=== PATIENT | male | born 1955 | race Caucasian/White ===

== ENCOUNTER 2017-04-24 06:20 | Emergency (ER) | payer OTHER ==
[~2017-04-24] VITALS: Ht 190.5 cm; Wt 91.0 kg
[2017-04-24 06:23] VITALS: BP 154/92
[2017-04-24] MEDS ORDERED: KETOROLAC 30MG/ML VIAL IV STA (07:08)
[2017-04-24] MEDS ORDERED: ACETAMINOPHEN 325MG TABLET PO STA (07:08)
[2017-04-24] MEDS ORDERED: SODIUM CHLORIDE 0.9% 1000ML BAG (SEPSIS BOLUS) IV ONE (07:15)
== END 2017-04-24 09:13 | disposition left against medical advice (07) ==
LOC: ER 06:20
DX: R50.9 Fever, unspecified (principal); R05 Cough; J44.9 Chronic obstructive pulmonary disease, unspecified; E11.9 Type 2 diabetes mellitus without complications; I10 Essential (primary) hypertension; F43.10 Post-traumatic stress disorder, unspecified; Z86.19 Personal history of other infectious and parasitic diseases
CPT/HCPCS: 99283; J7030

== ENCOUNTER 2018-09-02 04:55 | Inpatient (IN) | payer OTHER ==
[2018-09-02] VITALS (7 sets, daily range): BP systolic 118–146; BP diastolic 78–98
[~2018-09-02] VITALS: Ht 200.7 cm; Wt 87.1 kg
[2018-09-02] MEDS ORDERED: ALBUTEROL (0.083%) 2.5MG/3ML NEB HHN STA (04:59)
[2018-09-02] MEDS ORDERED: METHYLPREDNISOLONE SOD SUCC 125 MG/2 ML VIAL IV STA (04:59)
[2018-09-02] MEDS ORDERED: IPRATROPIUM BROMIDE (0.02%) 0.5MG/2.5ML NEB HHN STA (04:59)
[2018-09-02 05:36] LABS: BASOPHILS % 1.3 % (0.0-2.0); EOSINOPHILS % 1.7 % (0.0-5.0); HEMATOCRIT. 42.2 % (42.0-52.0); HEMOGLOBIN. 14.8 g/dL (14.0-18.0); LYMPHOCYTES % 16.8 % (20.0-50.0); MEAN CORPUSCULAR HEMOGLOBIN 31.6 pg (28.0-32.0); MEAN CORPUSCULAR VOLUME 90.3 fL (80.0-94.0); MEAN PLATELET VOLUME 8.6 fl (7.4-10.4); NEUTROPHILS % 71.2 % (40.0-76.0); PLATELET 285 x1000/uL (130-400); RED BLOOD CELL COUNT 4.67 mill/uL (4.7-6.1); RED CELL DISTRIBUTION WIDTH 13.7 % (11.6-14.6)
[2018-09-02 05:38] LABS: CHLORIDE 100 mEq/L (98-107)
[2018-09-02] MEDS ORDERED: GLIP5TAB12 MT (10:24)
[2018-09-02] MEDS ORDERED: ASPI-1158 MT (10:24)
[2018-09-02] MEDS ORDERED: IPRATROPIUM/ALBUTEROL 0.5-3(2.5)MG/3ML NEB INH PRN (10:30)
[2018-09-02] MEDS ORDERED: ONDANSETRON HCL 4MG/2ML INJ IV PRN (10:30)
[2018-09-02] MEDS ORDERED: DOCUSATE SODIUM 100MG CAPSULE PO PRN (10:30)
[2018-09-02] MEDS ORDERED: ACETAMINOPHEN 325MG TABLET PO PRN (10:30)
[2018-09-02] MEDS ORDERED: MAGNESIUM/ALUMINUM HYDROXIDE/SIMETHICONE 30ML UDC PO PRN (10:30)
[2018-09-02] MEDS ORDERED: CLONIDINE 0.1MG TABLET PO PRN (10:30)
[2018-09-02] MEDS ORDERED: CHOL20004 MT (10:53)
[2018-09-02] MEDS ORDERED: METHYLPREDNISOLONE SOD SUCC 125 MG/2 ML VIAL IV SCH (11:00)
[2018-09-02] MEDS: ENOXAPARIN 40MG/0.4ML SYR SUBCUT SCH (11:30)
[2018-09-02] MEDS ORDERED: DEXTROSE 50% WATER 50ML SYRINGE IV PRN (12:00)
[2018-09-02] MEDS: BLOOD SUGAR DIAGNOSTIC STRIP TEST SCH ×3 (12:20→20:55)
[2018-09-02] MEDS ORDERED: LEVOFLOXACIN 500MG PREMIX 100 ML IV SCH (12:30)
[2018-09-02 12:48] LABS: BG BASE EXCESS -2.1 mmol/L (-2.0-2.0); BG CARBOXYHEMOGLOBIN 0.5 % (0.5-1.5); BG DEOXYHEMOGLOBIN 2.6 % (0.0-5.0); BG FRACTION INSPIRED OXYGEN 28; BG HCO3 ACT 21.8 mmol/L (22.0-26.0); BG METHEMOGLOBIN 0.1 % (0.0-1.5); BG OXYGEN SATURATION 97.4 % (92.0-98.5); BG OXYHEMOGLOBIN 96.8 % (94.0-97.0); BG PCO2 35.3 mmHg (35.0-45.0); BG PH 7.409 (7.350-7.450); BG PO2 98.3 mmHg (75.0-100.0); BG SAMPLE SITE RIGHT BRACHIAL; BG TOTAL HEMOGLOBIN 15.3 g/dL (12.0-18.0); BG VENT MODE NASAL CANNULA
[2018-09-02] MEDS: IPRATROPIUM/ALBUTEROL 0.5-3(2.5)MG/3ML NEB INH SCH ×2 (13:05→20:06)
[2018-09-02] MEDS: INSULIN LISPRO 100 UNITS/ML SUBCUT SCH ×3 (13:27→21:00)
[2018-09-02] MEDS: NICOTINE 21MG PATCH TD SCH (14:55)
[2018-09-02] MEDS: MONTELUKAST SODIUM 10MG TABLET PO SCH (16:18)
[2018-09-02] MEDS: CEFTRIAXONE 1 G PREMIX 50 ML IV SCH (16:18)
[2018-09-02] MEDS: AZITHROMYCIN 500 MG in DEXT 5% WATER 250 ML IV SCH (16:18)
[2018-09-02 16:21] LABS: CLARITY URINE CLEAR (CLEAR); COLOR URINE YELLOW (YELLOW); KETONES URINE 1+ (NEGATIVE); LEUKOCYTE ESTERASE URINE NEGATIVE (NEGATIVE); NITRITE URINE NEGATIVE (NEGATIVE); OCCULT BLOOD URINE NEGATIVE (NEGATIVE); PROTEIN URINE NEGATIVE (NEGATIVE); SPECIFIC GRAVITY URINE 1.037 (1.005-1.030)
[2018-09-02 16:42] LABS: *AMPHETAMINES SCREEN URINE PRESUMTIVE POSITIVE (NEGATIVE); *BARBITURATES SCREEN URINE NEGATIVE (NEGATIVE); *BENZODIAZEPINES SCREEN URINE NEGATIVE (NEGATIVE); *COCAINE SCREEN URINE NEGATIVE (NEGATIVE); METHADONE URINE SCREEN NEGATIVE (NEGATIVE); OPIATES URINE SCREEN NEGATIVE (NEGATIVE)
[2018-09-02 16:43] LABS: CANNABINOID URINE SCREEN NEGATIVE (NEGATIVE); PHENCYCLIDINE URINE SCREEN NEGATIVE (NEGATIVE)
[2018-09-02] MEDS: GLIPIZIDE 5MG TABLET PO SCH (16:45)
[2018-09-02] MEDS: GUAIFENESIN 200MG/10ML SUGAR FREE UDC PO PRN (16:45)
[2018-09-02] MEDS: LORATADINE 10MG TABLET PO SCH (20:49)
[2018-09-02] MEDS: METHYLPREDNISOLONE SOD SUCC 40 MG/ML VIAL IV SCH (20:49)
[2018-09-02] MEDS: FLUTICASONE PROPIONATE 50MCG/SPRAY BOTTLE BOTHNSTRLS SCH (20:50)
[2018-09-03] VITALS (12 sets, daily range): BP systolic 117–153; BP diastolic 67–91
[2018-09-03] MEDS: MORPHINE SULFATE 2 MG/ML CPJ (NOT FOR IM USE) IV PRN (01:36)
[2018-09-03] MEDS: IPRATROPIUM/ALBUTEROL 0.5-3(2.5)MG/3ML NEB INH SCH ×4 (01:50→20:16)
[2018-09-03] MEDS: METHYLPREDNISOLONE SOD SUCC 40 MG/ML VIAL IV SCH ×3 (03:12→20:33)
[2018-09-03 07:34] LABS: HEMATOCRIT. 42.1 % (42.0-52.0); HEMOGLOBIN. 14.4 g/dL (14.0-18.0); MEAN CORPUSCULAR HEMOGLOBIN 30.9 pg (28.0-32.0); MEAN CORPUSCULAR VOLUME 90.3 fL (80.0-94.0); MEAN PLATELET VOLUME 8.7 fl (7.4-10.4); PLATELET 285 x1000/uL (130-400); RED BLOOD CELL COUNT 4.67 mill/uL (4.7-6.1); RED CELL DISTRIBUTION WIDTH 13.5 % (11.6-14.6)
[2018-09-03 07:49] LABS: CHLORIDE 99 mEq/L (98-107)
[2018-09-03] MEDS: BLOOD SUGAR DIAGNOSTIC STRIP TEST SCH ×4 (08:10→20:45)
[2018-09-03] MEDS: GLIPIZIDE 5MG TABLET PO SCH ×2 (08:13→17:23)
[2018-09-03] MEDS: ENOXAPARIN 40MG/0.4ML SYR SUBCUT SCH (08:32)
[2018-09-03] MEDS: NICOTINE 21MG PATCH TD SCH (08:32)
[2018-09-03] MEDS: FLUTICASONE PROPIONATE 50MCG/SPRAY BOTTLE BOTHNSTRLS SCH ×2 (08:32→20:32)
[2018-09-03] MEDS: INSULIN LISPRO 100 UNITS/ML SUBCUT SCH ×6 (08:39→20:44)
[2018-09-03] MEDS: AMLODIPINE 10MG TABLET PO SCH (08:40)
[2018-09-03] MEDS ORDERED: BENZONATATE 100MG CAPSULE PO PRN (11:45)
[2018-09-03] MEDS ORDERED: TERBUTALINE SULFATE 1MG/ML VIAL SUBCUT SCH (12:30)
[2018-09-03] MEDS ORDERED: PHENOL/SODIUM PHENOLATE 1.4% SRPAY 177ML MM PRN (13:00)
[2018-09-03] MEDS: OSELTAMIVIR 75MG CAPSULE PO SCH ×2 (13:29→23:11)
[2018-09-03] MEDS: THEOPHYLLINE ANHYDROUS 80 MG/15 ML 120ML PO SCH ×2 (13:31→22:00)
[2018-09-03] MEDS: PROMETHAZINE/DEXTROMETHORPHAN 6.25-15MG/5ML BOTTLE 120ML PO PRN ×2 (13:31→20:32)
[2018-09-03 16:20] LABS: PLATELET ESTIMATE NORMAL
[2018-09-03] MEDS: CEFTRIAXONE 1 G PREMIX 50 ML IV SCH (17:22)
[2018-09-03] MEDS: AZITHROMYCIN 500 MG in DEXT 5% WATER 250 ML IV SCH (17:23)
[2018-09-03] MEDS: MONTELUKAST SODIUM 10MG TABLET PO SCH (17:23)
[2018-09-03] MEDS: LORATADINE 10MG TABLET PO SCH (20:32)
[2018-09-03] MEDS: GUAIFENESIN 200MG/10ML SUGAR FREE UDC PO PRN (20:32)
[2018-09-04] VITALS (11 sets, daily range): BP systolic 121–148; BP diastolic 69–88
[2018-09-04] MEDS: IPRATROPIUM/ALBUTEROL 0.5-3(2.5)MG/3ML NEB INH SCH ×4 (02:02→20:32)
[2018-09-04] MEDS: METHYLPREDNISOLONE SOD SUCC 40 MG/ML VIAL IV SCH ×3 (04:00→21:37)
[2018-09-04] MEDS: PROMETHAZINE/DEXTROMETHORPHAN 6.25-15MG/5ML BOTTLE 120ML PO PRN ×3 (05:21→17:54)
[2018-09-04] MEDS: THEOPHYLLINE ANHYDROUS 80 MG/15 ML 120ML PO SCH ×3 (06:00→21:35)
[2018-09-04 06:58] LABS: HEMATOCRIT. 45.1 % (42.0-52.0); HEMOGLOBIN. 14.8 g/dL (14.0-18.0); MEAN CORPUSCULAR HEMOGLOBIN 30.3 pg (28.0-32.0); MEAN CORPUSCULAR VOLUME 92.3 fL (80.0-94.0); MEAN PLATELET VOLUME 9.1 fl (7.4-10.4); PLATELET 318 x1000/uL (130-400); RED BLOOD CELL COUNT 4.88 mill/uL (4.7-6.1); RED CELL DISTRIBUTION WIDTH 13.6 % (11.6-14.6)
[2018-09-04] MEDS: BLOOD SUGAR DIAGNOSTIC STRIP TEST SCH ×4 (07:30→21:35)
[2018-09-04 07:33] LABS: CHLORIDE 101 mEq/L (98-107)
[2018-09-04] MEDS: GLIPIZIDE 5MG TABLET PO SCH ×2 (08:39→16:35)
[2018-09-04] MEDS: NICOTINE 21MG PATCH TD SCH (08:52)
[2018-09-04] MEDS: FLUTICASONE PROPIONATE 50MCG/SPRAY BOTTLE BOTHNSTRLS SCH ×2 (08:52→21:37)
[2018-09-04] MEDS: OSELTAMIVIR 75MG CAPSULE PO SCH ×2 (08:56→21:37)
[2018-09-04] MEDS: AMLODIPINE 10MG TABLET PO SCH (09:00)
[2018-09-04] MEDS: ENOXAPARIN 40MG/0.4ML SYR SUBCUT SCH (09:00)
[2018-09-04] MEDS: INSULIN LISPRO 100 UNITS/ML SUBCUT SCH ×7 (09:03→21:51)
[2018-09-04 11:24] LABS: PLATELET ESTIMATE NORMAL
[2018-09-04] MEDS: CEFTRIAXONE 1 G PREMIX 50 ML IV SCH (16:19)
[2018-09-04] MEDS: AZITHROMYCIN 500 MG in DEXT 5% WATER 250 ML IV SCH (16:20)
[2018-09-04] MEDS: MONTELUKAST SODIUM 10MG TABLET PO SCH (16:20)
[2018-09-04] MEDS: GUAIFENESIN 600MG ER TABLET PO SCH (21:37)
[2018-09-04] MEDS: LORATADINE 10MG TABLET PO SCH (21:37)
[2018-09-05] VITALS: BP 143/86
[2018-09-05] MEDS: THROAT LOZENGES-BENZOCAINE/MENTH/CETYLPYRD CL LOZENGES MM PRN ×2 (00:25→21:45)
[2018-09-05] MEDS: GUAIFENESIN 200MG/10ML SUGAR FREE UDC PO PRN (00:28)
[2018-09-05] MEDS: PROMETHAZINE/DEXTROMETHORPHAN 6.25-15MG/5ML BOTTLE 120ML PO PRN ×2 (00:32→13:03)
[2018-09-05] MEDS: IPRATROPIUM/ALBUTEROL 0.5-3(2.5)MG/3ML NEB INH SCH ×3 (02:29→20:27)
[2018-09-05 04:00] VITALS: BP 106/78
[2018-09-05] MEDS: METHYLPREDNISOLONE SOD SUCC 40 MG/ML VIAL IV SCH ×3 (04:26→20:17)
[2018-09-05] MEDS: MORPHINE SULFATE 2 MG/ML CPJ (NOT FOR IM USE) IV PRN ×3 (04:41→20:13)
[2018-09-05] MEDS: GLIPIZIDE 5MG TABLET PO SCH ×2 (06:32→17:11)
[2018-09-05] MEDS: BLOOD SUGAR DIAGNOSTIC STRIP TEST SCH ×4 (06:33→20:31)
[2018-09-05] MEDS: THEOPHYLLINE ANHYDROUS 80 MG/15 ML 120ML PO SCH ×3 (06:33→21:06)
[2018-09-05 08:00] VITALS: BP 136/81
[2018-09-05] MEDS: ENOXAPARIN 40MG/0.4ML SYR SUBCUT SCH (08:31)
[2018-09-05] MEDS: AMLODIPINE 10MG TABLET PO SCH (08:32)
[2018-09-05] MEDS: OSELTAMIVIR 75MG CAPSULE PO SCH ×2 (08:32→20:18)
[2018-09-05] MEDS: GUAIFENESIN 600MG ER TABLET PO SCH ×2 (08:32→20:18)
[2018-09-05] MEDS: NICOTINE 21MG PATCH TD SCH (08:33)
[2018-09-05] MEDS: FLUTICASONE PROPIONATE 50MCG/SPRAY BOTTLE BOTHNSTRLS SCH ×2 (08:33→20:18)
[2018-09-05] MEDS: INSULIN LISPRO 100 UNITS/ML SUBCUT SCH ×7 (08:34→20:36)
[2018-09-05 11:36] VITALS: BP 143/75
[2018-09-05 16:00] VITALS: BP 151/88
[2018-09-05] MEDS: CEFTRIAXONE 1 G PREMIX 50 ML IV SCH (16:05)
[2018-09-05] MEDS: MONTELUKAST SODIUM 10MG TABLET PO SCH (16:06)
[2018-09-05] MEDS: AZITHROMYCIN 500 MG in DEXT 5% WATER 250 ML IV SCH (17:11)
[2018-09-05 20:00] VITALS: BP 151/81
[2018-09-05] MEDS: LORATADINE 10MG TABLET PO SCH (20:18)
[2018-09-06] VITALS: BP 142/91
[2018-09-06] MEDS: IPRATROPIUM/ALBUTEROL 0.5-3(2.5)MG/3ML NEB INH SCH ×4 (02:06→20:22)
[2018-09-06] MEDS: MORPHINE SULFATE 2 MG/ML CPJ (NOT FOR IM USE) IV PRN ×4 (02:07→20:37)
[2018-09-06] MEDS: THROAT LOZENGES-BENZOCAINE/MENTH/CETYLPYRD CL LOZENGES MM PRN (02:10)
[2018-09-06 04:00] VITALS: BP 139/78
[2018-09-06] MEDS: GUAIFENESIN 200MG/10ML SUGAR FREE UDC PO PRN (04:50)
[2018-09-06] MEDS: THEOPHYLLINE ANHYDROUS 80 MG/15 ML 120ML PO SCH ×3 (05:11→21:20)
[2018-09-06 08:00] VITALS: BP 131/91
[2018-09-06] MEDS: BLOOD SUGAR DIAGNOSTIC STRIP TEST SCH ×4 (08:08→20:38)
[2018-09-06] MEDS: GLIPIZIDE 5MG TABLET PO SCH ×2 (08:08→17:05)
[2018-09-06] MEDS: INSULIN LISPRO 100 UNITS/ML SUBCUT SCH ×7 (08:09→21:20)
[2018-09-06] MEDS: ENOXAPARIN 40MG/0.4ML SYR SUBCUT SCH (08:37)
[2018-09-06] MEDS: AMLODIPINE 10MG TABLET PO SCH (08:38)
[2018-09-06] MEDS: NICOTINE 21MG PATCH TD SCH (08:38)
[2018-09-06] MEDS: METHYLPREDNISOLONE SOD SUCC 40 MG/ML VIAL IV SCH ×2 (08:38→16:59)
[2018-09-06] MEDS: GUAIFENESIN 600MG ER TABLET PO SCH ×2 (08:38→20:37)
[2018-09-06] MEDS: OSELTAMIVIR 75MG CAPSULE PO SCH ×2 (09:15→20:38)
[2018-09-06] MEDS ORDERED: MAGNESIUM HYDROXIDE 400MG/5ML 30ML UDC PO PRN (11:45)
[2018-09-06] MEDS ORDERED: LACTULOSE 20G/30ML UDC PO NR (11:45)
[2018-09-06 12:00] VITALS: BP 137/84
[2018-09-06 16:00] VITALS: BP 131/86
[2018-09-06] MEDS: AZITHROMYCIN 500 MG in DEXT 5% WATER 250 ML IV SCH (16:58)
[2018-09-06] MEDS: CEFTRIAXONE 1 G PREMIX 50 ML IV SCH (16:58)
[2018-09-06] MEDS: MONTELUKAST SODIUM 10MG TABLET PO SCH (16:59)
[2018-09-06 20:00] VITALS: BP 128/92
[2018-09-06] MEDS: LORATADINE 10MG TABLET PO SCH (20:38)
[2018-09-07] VITALS (7 sets, daily range): BP systolic 112–144; BP diastolic 67–87
[2018-09-07] MEDS: IPRATROPIUM/ALBUTEROL 0.5-3(2.5)MG/3ML NEB INH SCH ×5 (00:31→20:49)
[2018-09-07] MEDS: THROAT LOZENGES-BENZOCAINE/MENTH/CETYLPYRD CL LOZENGES MM PRN ×2 (01:58→13:27)
[2018-09-07] MEDS: PROMETHAZINE/DEXTROMETHORPHAN 6.25-15MG/5ML BOTTLE 120ML PO PRN (01:58)
[2018-09-07] MEDS: MORPHINE SULFATE 2 MG/ML CPJ (NOT FOR IM USE) IV PRN ×4 (04:39→18:31)
[2018-09-07] MEDS: THEOPHYLLINE ANHYDROUS 80 MG/15 ML 120ML PO SCH ×3 (05:26→21:12)
[2018-09-07] MEDS: BLOOD SUGAR DIAGNOSTIC STRIP TEST SCH ×4 (06:31→21:00)
[2018-09-07] MEDS: GLIPIZIDE 5MG TABLET PO SCH ×2 (06:32→18:16)
[2018-09-07] MEDS: INSULIN LISPRO 100 UNITS/ML SUBCUT SCH ×7 (09:00→22:44)
[2018-09-07] MEDS: NICOTINE 21MG PATCH TD SCH (09:12)
[2018-09-07] MEDS: METHYLPREDNISOLONE SOD SUCC 40 MG/ML VIAL IV SCH ×2 (09:12→17:58)
[2018-09-07] MEDS: GUAIFENESIN 600MG ER TABLET PO SCH ×2 (09:12→21:11)
[2018-09-07] MEDS: AMLODIPINE 10MG TABLET PO SCH (09:13)
[2018-09-07] MEDS: ENOXAPARIN 40MG/0.4ML SYR SUBCUT SCH (09:14)
[2018-09-07] MEDS: OSELTAMIVIR 75MG CAPSULE PO SCH ×2 (10:02→21:11)
[2018-09-07] MEDS ORDERED: MORPHINE SULFATE 2 MG/ML CPJ (NOT FOR IM USE) IV PRN (10:30)
[2018-09-07] MEDS: CEFTRIAXONE 1 G PREMIX 50 ML IV SCH (16:21)
[2018-09-07] MEDS: MONTELUKAST SODIUM 10MG TABLET PO SCH (17:58)
[2018-09-07] MEDS: AZITHROMYCIN 500 MG in DEXT 5% WATER 250 ML IV SCH (17:58)
[2018-09-07] MEDS: LORATADINE 10MG TABLET PO SCH (21:11)
[2018-09-08] VITALS (7 sets, daily range): BP systolic 124–144; BP diastolic 69–93
[2018-09-08] MEDS: GUAIFENESIN 200MG/10ML SUGAR FREE UDC PO PRN (00:52)
[2018-09-08] MEDS: PROMETHAZINE/DEXTROMETHORPHAN 6.25-15MG/5ML BOTTLE 120ML PO PRN ×2 (00:55→00:59)
[2018-09-08] MEDS: IPRATROPIUM/ALBUTEROL 0.5-3(2.5)MG/3ML NEB INH SCH ×3 (02:25→14:10)
[2018-09-08] MEDS: THROAT LOZENGES-BENZOCAINE/MENTH/CETYLPYRD CL LOZENGES MM PRN ×2 (02:34→09:16)
[2018-09-08] MEDS: MORPHINE SULFATE 2 MG/ML CPJ (NOT FOR IM USE) IV PRN ×4 (04:17→20:40)
[2018-09-08] MEDS: THEOPHYLLINE ANHYDROUS 80 MG/15 ML 120ML PO SCH ×3 (06:56→22:49)
[2018-09-08] MEDS: BLOOD SUGAR DIAGNOSTIC STRIP TEST SCH ×4 (08:04→20:28)
[2018-09-08] MEDS: GLIPIZIDE 5MG TABLET PO SCH ×2 (08:37→18:08)
[2018-09-08] MEDS: INSULIN LISPRO 100 UNITS/ML SUBCUT SCH ×7 (08:40→22:48)
[2018-09-08] MEDS: METHYLPREDNISOLONE SOD SUCC 40 MG/ML VIAL IV SCH ×2 (08:56→18:07)
[2018-09-08] MEDS: NICOTINE 21MG PATCH TD SCH (08:56)
[2018-09-08] MEDS: AMLODIPINE 10MG TABLET PO SCH (08:56)
[2018-09-08] MEDS: GUAIFENESIN 600MG ER TABLET PO SCH ×2 (08:56→20:28)
[2018-09-08] MEDS: ENOXAPARIN 40MG/0.4ML SYR SUBCUT SCH (08:57)
[2018-09-08] MEDS: CEFTRIAXONE 1 G PREMIX 50 ML IV SCH (17:13)
[2018-09-08] MEDS: MONTELUKAST SODIUM 10MG TABLET PO SCH (18:07)
[2018-09-08] MEDS: AZITHROMYCIN 500 MG in DEXT 5% WATER 250 ML IV SCH (18:08)
[2018-09-08] MEDS: LORATADINE 10MG TABLET PO SCH (20:28)
[2018-09-09] VITALS (8 sets, daily range): BP systolic 100–156; BP diastolic 56–87
[2018-09-09] MEDS: IPRATROPIUM/ALBUTEROL 0.5-3(2.5)MG/3ML NEB INH SCH ×2 (01:58→20:24)
[2018-09-09] MEDS: THROAT LOZENGES-BENZOCAINE/MENTH/CETYLPYRD CL LOZENGES MM PRN (03:07)
[2018-09-09] MEDS: MORPHINE SULFATE 2 MG/ML CPJ (NOT FOR IM USE) IV PRN ×4 (03:09→20:09)
[2018-09-09] MEDS: GLIPIZIDE 5MG TABLET PO SCH ×2 (06:50→17:06)
[2018-09-09] MEDS: THEOPHYLLINE ANHYDROUS 80 MG/15 ML 120ML PO SCH ×3 (06:51→21:30)
[2018-09-09] MEDS: INSULIN LISPRO 100 UNITS/ML SUBCUT SCH ×7 (08:00→21:47)
[2018-09-09] MEDS: BLOOD SUGAR DIAGNOSTIC STRIP TEST SCH ×4 (08:05→21:00)
[2018-09-09] MEDS: METHYLPREDNISOLONE SOD SUCC 40 MG/ML VIAL IV SCH ×2 (08:06→17:06)
[2018-09-09] MEDS: NICOTINE 21MG PATCH TD SCH (08:06)
[2018-09-09] MEDS: ENOXAPARIN 40MG/0.4ML SYR SUBCUT SCH (08:06)
[2018-09-09] MEDS: AMLODIPINE 10MG TABLET PO SCH (08:06)
[2018-09-09] MEDS: GUAIFENESIN 600MG ER TABLET PO SCH ×2 (09:00→20:22)
[2018-09-09] MEDS: CEFTRIAXONE 1 G PREMIX 50 ML IV SCH (16:30)
[2018-09-09] MEDS: MONTELUKAST SODIUM 10MG TABLET PO SCH (17:06)
[2018-09-09] MEDS: AZITHROMYCIN 500 MG in DEXT 5% WATER 250 ML IV SCH (17:07)
[2018-09-09] MEDS: LORATADINE 10MG TABLET PO SCH (20:22)
[2018-09-20] MEDS ORDERED: AMLO10TA80 MT (20:07)
[2018-09-20] MEDS ORDERED: MONT10TA24 MT (20:07)
[2018-09-20] MEDS ORDERED: PRED10TA23 MT (20:07)
[2018-09-20] MEDS ORDERED: THEO400T PO (20:07)
[2018-09-20] MEDS ORDERED: METF-414 MT (20:07)
[2018-09-20] MEDS ORDERED: TIOT18CA3 INH (20:07)
[2018-09-20] MEDS ORDERED: GUAI200T5 MT (20:07)
[2018-09-20] MEDS ORDERED: DOXY150T PO (20:07)
== END 2018-09-09 22:45 | disposition home or self-care (01) | DRG 917 ==
LOC: EDBD → ER 04:55 → 5EST 05:18 → EDBEDREQTM 05:19 → EDBEDREQ 05:19 → ENRESERV 08:43
PROVIDERS: ADMIT Hospitalist; ATTEND Hospitalist
PROC: 5A09357 Assistance with Respiratory Ventilation, Less than 24 Consecutive Hours, Continuous Positive Airway Pressure (ICD-10-PCS; principal; 2018-09-02)
DX: T43.621A Poisoning by amphetamines, accidental (unintentional), initial encounter (principal); J96.00 Acute respiratory failure, unspecified whether with hypoxia or hypercapnia; J11.08 Influenza due to unidentified influenza virus with specified pneumonia; J68.0 Bronchitis and pneumonitis due to chemicals, gases, fumes and vapors; R65.10 Systemic inflammatory response syndrome (SIRS) of non-infectious origin without acute organ dysfunction; I10 Essential (primary) hypertension; B19.20 Unspecified viral hepatitis C without hepatic coma; F17.210 Nicotine dependence, cigarettes, uncomplicated; Z60.2 Problems related to living alone; J43.9 Emphysema, unspecified; E11.65 Type 2 diabetes mellitus with hyperglycemia; T38.0X5A Adverse effect of glucocorticoids and synthetic analogues, initial encounter; K76.9 Liver disease, unspecified; Z82.3 Family history of stroke; Z86.19 Personal history of other infectious and parasitic diseases; Z71.6 Tobacco abuse counseling; Y92.89 Other specified places as the place of occurrence of the external cause
CPT/HCPCS: 36415; 36600; 70490; 71045; 80305; 82375; 82805; 82962; 83735; 83880; 84484; 87070; 87502; 87804; 93005; 93970; 94640; 94660; 96374; 99291; J0456; J0696; J1650; J1815; J1956; J2270; J2920; J2930; J3105; J7050; J7060; J7611; J7620

== ENCOUNTER 2018-09-16 05:11 | Emergency (ER) | payer OTHER ==
[~2018-09-16] VITALS: Ht 185.4 cm; Wt 82.0 kg
[~2018-09-16 05:11] MED LIST: ASPI-1158 MT; CHOL20004 MT; GLIP5TAB12 MT
[2018-09-16] MEDS ORDERED: IPRATROPIUM BROMIDE (0.02%) 0.5MG/2.5ML NEB HHN STA (05:16)
[2018-09-16] MEDS ORDERED: MAGNESIUM 2 G PREMIX 50 ML IV STA (05:16)
[2018-09-16] MEDS ORDERED: ALBUTEROL (0.083%) 2.5MG/3ML NEB HHN STA (05:16)
[2018-09-16] MEDS ORDERED: METHYLPREDNISOLONE SOD SUCC 125 MG/2 ML VIAL IV STA (05:16)
[2018-09-16 05:40] LABS: CHLORIDE 103 mEq/L (98-107)
[2018-09-16 05:42] LABS: HEMATOCRIT 44.2 % (42.0-52.0); HEMOGLOBIN 15.1 g/dL (14.0-18.0); MEAN CORPUSCULAR HEMOGLOBIN 31.5 pg (28.0-32.0); MEAN CORPUSCULAR VOLUME 91.9 fL (80.0-94.0); PLATELET 204 x1000/uL (130-400); RED BLOOD CELL COUNT 4.81 mill/uL (4.7-6.1); RED CELL DISTRIBUTION WIDTH 13.7 % (11.6-14.6)
[2018-09-16] MEDS ORDERED: ONDANSETRON HCL 4MG/2ML INJ IV ONE (06:15)
[2018-09-16] MEDS ORDERED: MORPHINE SULFATE 4 MG/ML CPJ (NOT FOR IM USE) IV ONE (06:15)
[2018-09-16] MEDS ORDERED: NITROGLYCERIN OINT 1GM/INCH UDPKT TD SCH (07:00)
[2018-09-16] MEDS ORDERED: ONDANSETRON HCL 4MG/2ML INJ IV PRN (07:45)
[2018-09-16] MEDS ORDERED: DEXTROSE 50% WATER 50ML SYRINGE IV PRN (07:45)
[2018-09-16] MEDS ORDERED: IPRATROPIUM BROMIDE (0.02%) 0.5MG/2.5ML NEB HHN SCH (07:45)
[2018-09-16] MEDS ORDERED: BUDESONIDE 0.5MG/2ML NEB HHN SCH (07:45)
[2018-09-16] MEDS ORDERED: MORPHINE SULFATE 2 MG/ML CPJ (NOT FOR IM USE) IV PRN (07:45)
[2018-09-16] MEDS ORDERED: ACETAMINOPHEN 325MG TABLET PO PRN (07:45)
[2018-09-16 07:47] VITALS: BP 142/77
[2018-09-16 07:48] LABS: *AMPHETAMINES SCREEN URINE NEGATIVE (NEGATIVE); *BARBITURATES SCREEN URINE NEGATIVE (NEGATIVE); *BENZODIAZEPINES SCREEN URINE NEGATIVE (NEGATIVE); *COCAINE SCREEN URINE NEGATIVE (NEGATIVE); CANNABINOID URINE SCREEN NEGATIVE (NEGATIVE); METHADONE URINE SCREEN NEGATIVE (NEGATIVE); OPIATES URINE SCREEN NEGATIVE (NEGATIVE); PHENCYCLIDINE URINE SCREEN NEGATIVE (NEGATIVE)
[2018-09-16] MEDS ORDERED: INSULIN LISPRO 100 UNITS/ML SUBCUT SCH (08:20)
[2018-09-16] MEDS ORDERED: BLOOD SUGAR DIAGNOSTIC STRIP TEST SCH (09:00)
[2018-09-16] MEDS ORDERED: INSULIN GLARGINE UD 100 UNITS/ML SYR SUBCUT SCH (10:00)
[2018-09-20] MEDS ORDERED: TIOT18CA3 INH (20:07)
[2018-09-20] MEDS ORDERED: MONT10TA24 MT (20:07)
[2018-09-20] MEDS ORDERED: METF-414 MT (20:07)
[2018-09-20] MEDS ORDERED: GUAI200T5 MT (20:07)
[2018-09-20] MEDS ORDERED: PRED10TA23 MT (20:07)
[2018-09-20] MEDS ORDERED: AMLO10TA80 MT (20:07)
[2018-09-20] MEDS ORDERED: THEO400T PO (20:07)
[2018-09-20] MEDS ORDERED: DOXY150T PO (20:07)
== END 2018-09-16 07:55 | disposition left against medical advice (07) ==
LOC: EDBD → ER 05:11 → EDBEDREQ 06:12 → EDBEDREQTM 06:12 → CANBEDREQ 07:53 → ER 07:55
DX: J44.1 Chronic obstructive pulmonary disease with (acute) exacerbation (principal); E11.9 Type 2 diabetes mellitus without complications; I10 Essential (primary) hypertension; Z86.19 Personal history of other infectious and parasitic diseases; Z79.82 Long term (current) use of aspirin
CPT/HCPCS: 36415; 71045; 80053; 80305; 84484; 85027; 93005; 94640; 96365; 96366; 96375; 99291; J2270; J2405; J2930; J3475; J7611

== ENCOUNTER 2018-09-16 08:00 | Inpatient (IN) | payer OTHER ==
[2018-09-16] VITALS (7 sets, daily range): BP systolic 129–141; BP diastolic 68–90
[~2018-09-16] VITALS: Ht 200.7 cm; Wt 85.1 kg
[2018-09-16] MEDS ORDERED: ACETAMINOPHEN 325MG TABLET PO PRN (08:15)
[2018-09-16] MEDS ORDERED: ONDANSETRON HCL 4MG/2ML INJ IV PRN (08:15)
[2018-09-16] MEDS ORDERED: DIPHENHYDRAMINE 50MG/ML VIAL IV PRN (08:15)
[2018-09-16] MEDS ORDERED: CEFTRIAXONE 1 G PREMIX 50 ML IV SCH (08:30)
[2018-09-16] MEDS ORDERED: AZITHROMYCIN 500 MG in DEXT 5% WATER 250 ML IV SCH (09:30)
[2018-09-16] MEDS ORDERED: DEXTROSE 50% WATER 50ML SYRINGE IV PRN (12:00)
[2018-09-16] MEDS: BLOOD SUGAR DIAGNOSTIC STRIP TEST SCH ×3 (12:53→21:36)
[2018-09-16] MEDS: INSULIN LISPRO 100 UNITS/ML SUBCUT SCH ×3 (13:58→21:25)
[2018-09-16] MEDS: HYDROCODONE/ACETAMINOPHEN 5/325MG TABLET PO PRN ×2 (14:11→21:36)
[2018-09-16] MEDS: FERROUS SULFATE 325MG TABLET PO SCH (14:11)
[2018-09-16] MEDS: THIAMINE HCL 100MG TABLET PO SCH (14:11)
[2018-09-16] MEDS: METHYLPREDNISOLONE SOD SUCC 40 MG/ML VIAL IV SCH ×2 (14:12→21:21)
[2018-09-16] MEDS: CEFTRIAXONE 1 G PREMIX 50 ML IV SCH (15:30)
[2018-09-16] MEDS: AZITHROMYCIN 500 MG in DEXT 5% WATER 250 ML IV SCH (16:04)
[2018-09-16 17:33] LABS: HEMATOCRIT. 41.4 % (42.0-52.0); MEAN CORPUSCULAR HEMOGLOBIN 31.3 pg (28.0-32.0); MEAN CORPUSCULAR VOLUME 92.5 fL (80.0-94.0); MEAN PLATELET VOLUME 9.3 fl (7.4-10.4); PLATELET 148 x1000/uL (130-400); RED BLOOD CELL COUNT 4.47 mill/uL (4.7-6.1)
[2018-09-16 17:45] LABS: CHLORIDE 99 mEq/L (98-107)
[2018-09-16 17:56] LABS: CREATINE KINASE MB FRACTION 5.6 ng/mL (0.5-3.6)
[2018-09-16] MEDS ORDERED: IPRATROPIUM/ALBUTEROL 0.5-3(2.5)MG/3ML NEB HHN PRN (18:00)
[2018-09-16 18:01] LABS: PLATELET ESTIMATE NORMAL
[2018-09-16] MEDS: AMLODIPINE 10MG TABLET PO SCH (18:18)
[2018-09-16] MEDS: ENOXAPARIN 40MG/0.4ML SYR SUBCUT SCH (18:19)
[2018-09-16] MEDS: INSULIN GLARGINE UD 100 UNITS/ML SYR SUBCUT SCH (21:24)
[2018-09-16] MEDS: IPRATROPIUM/ALBUTEROL 0.5-3(2.5)MG/3ML NEB HHN SCH (21:30)
[2018-09-17] VITALS (8 sets, daily range): BP systolic 119–150; BP diastolic 31–89
[2018-09-17] MEDS: IPRATROPIUM/ALBUTEROL 0.5-3(2.5)MG/3ML NEB HHN SCH ×4 (02:17→21:16)
[2018-09-17] MEDS: METHYLPREDNISOLONE SOD SUCC 40 MG/ML VIAL IV SCH (06:46)
[2018-09-17] MEDS: HYDROCODONE/ACETAMINOPHEN 5/325MG TABLET PO PRN ×3 (07:23→21:56)
[2018-09-17] MEDS: BLOOD SUGAR DIAGNOSTIC STRIP TEST SCH ×4 (07:56→21:00)
[2018-09-17] MEDS: THIAMINE HCL 100MG TABLET PO SCH (08:23)
[2018-09-17] MEDS: INSULIN LISPRO 100 UNITS/ML SUBCUT SCH ×7 (08:23→22:01)
[2018-09-17] MEDS: FERROUS SULFATE 325MG TABLET PO SCH (08:23)
[2018-09-17] MEDS: AMLODIPINE 10MG TABLET PO SCH (08:23)
[2018-09-17] MEDS: NICOTINE 21MG PATCH TD SCH (08:24)
[2018-09-17] MEDS: INSULIN GLARGINE UD 100 UNITS/ML SYR SUBCUT SCH ×2 (10:19→21:57)
[2018-09-17] MEDS: LORAZEPAM 2MG/ML CPJ IV PRN (10:34)
[2018-09-17 10:43] LABS: CLARITY URINE CLEAR (CLEAR); COLOR URINE YELLOW (YELLOW); KETONES URINE NEGATIVE (NEGATIVE); LEUKOCYTE ESTERASE URINE NEGATIVE (NEGATIVE); NITRITE URINE NEGATIVE (NEGATIVE); OCCULT BLOOD URINE NEGATIVE (NEGATIVE); PH URINE 6.5 (4.5-8.0); PROTEIN URINE NEGATIVE (NEGATIVE); SPECIFIC GRAVITY URINE 1.038 (1.005-1.030); UROBILINOGEN URINE 0.2 E.U./dL (0.2-1.0)
[2018-09-17] MEDS ORDERED: SUMATRIPTAN SUCCINATE 6MG/0.5ML VIAL SUBCUT NR (11:00)
[2018-09-17 11:05] LABS: *BENZODIAZEPINES SCREEN URINE NEGATIVE (NEGATIVE); *COCAINE SCREEN URINE NEGATIVE (NEGATIVE)
[2018-09-17 11:07] LABS: *AMPHETAMINES SCREEN URINE NEGATIVE (NEGATIVE); *BARBITURATES SCREEN URINE NEGATIVE (NEGATIVE); CANNABINOID URINE SCREEN NEGATIVE (NEGATIVE); METHADONE URINE SCREEN NEGATIVE (NEGATIVE); OPIATES URINE SCREEN PRESUMTIVE POSITIVE (NEGATIVE); PHENCYCLIDINE URINE SCREEN NEGATIVE (NEGATIVE)
[2018-09-17 11:40] LABS: HEMATOCRIT. 42.1 % (42.0-52.0); MEAN CORPUSCULAR HEMOGLOBIN 30.7 pg (28.0-32.0); MEAN CORPUSCULAR VOLUME 92.8 fL (80.0-94.0); MEAN PLATELET VOLUME 9.4 fl (7.4-10.4); PLATELET 153 x1000/uL (130-400); RED BLOOD CELL COUNT 4.54 mill/uL (4.7-6.1); RED CELL DISTRIBUTION WIDTH 13.6 % (11.6-14.6)
[2018-09-17 11:59] LABS: CHLORIDE 104 mEq/L (98-107)
[2018-09-17] MEDS: CEFTRIAXONE 1 G PREMIX 50 ML IV SCH (13:56)
[2018-09-17] MEDS: ENOXAPARIN 40MG/0.4ML SYR SUBCUT SCH (15:00)
[2018-09-17] MEDS: AZITHROMYCIN 500 MG in DEXT 5% WATER 250 ML IV SCH (18:41)
[2018-09-17 20:01] LABS: PLATELET ESTIMATE NORMAL
[2018-09-18] VITALS (11 sets, daily range): BP systolic 102–149; BP diastolic 43–87
[2018-09-18] MEDS: IPRATROPIUM/ALBUTEROL 0.5-3(2.5)MG/3ML NEB HHN SCH ×4 (01:09→21:21)
[2018-09-18] MEDS: HYDROCODONE/ACETAMINOPHEN 5/325MG TABLET PO PRN ×3 (06:11→18:27)
[2018-09-18 06:57] LABS: BASOPHILS % 0.1 % (0.0-2.0); EOSINOPHILS % 0.7 % (0.0-5.0); HEMATOCRIT. 40.9 % (42.0-52.0); HEMOGLOBIN. 14.2 g/dL (14.0-18.0); LYMPHOCYTES % 13.9 % (20.0-50.0); MEAN CORPUSCULAR HEMOGLOBIN 31.8 pg (28.0-32.0); MEAN CORPUSCULAR VOLUME 91.4 fL (80.0-94.0); MEAN PLATELET VOLUME 9.3 fl (7.4-10.4); MONOCYTES % 6.2 % (2.0-8.0); NEUTROPHILS % 79.1 % (40.0-76.0); PLATELET 132 x1000/uL (130-400); RED BLOOD CELL COUNT 4.47 mill/uL (4.7-6.1); RED CELL DISTRIBUTION WIDTH 13.7 % (11.6-14.6)
[2018-09-18 07:04] LABS: CHLORIDE 103 mEq/L (98-107)
[2018-09-18] MEDS: INSULIN LISPRO 100 UNITS/ML SUBCUT SCH ×7 (07:30→21:34)
[2018-09-18] MEDS: BLOOD SUGAR DIAGNOSTIC STRIP TEST SCH ×4 (08:08→21:34)
[2018-09-18] MEDS: NICOTINE 21MG PATCH TD SCH (09:33)
[2018-09-18] MEDS: PREDNISONE 20MG TABLET PO SCH (09:33)
[2018-09-18] MEDS: AMLODIPINE 10MG TABLET PO SCH (09:34)
[2018-09-18] MEDS: FERROUS SULFATE 325MG TABLET PO SCH (09:34)
[2018-09-18] MEDS: THIAMINE HCL 100MG TABLET PO SCH (09:34)
[2018-09-18] MEDS: INSULIN GLARGINE UD 100 UNITS/ML SYR SUBCUT SCH (09:40)
[2018-09-18] MEDS: LORAZEPAM 2MG/ML CPJ IV PRN (11:05)
[2018-09-18] MEDS: LOSARTAN POTASSIUM 25 MG TABLET PO SCH (11:13)
[2018-09-18 12:55] LABS: BG BASE EXCESS 4.7 mmol/L (-2.0-2.0); BG CARBOXYHEMOGLOBIN 1.1 % (0.5-1.5); BG DEOXYHEMOGLOBIN 3.2 % (0.0-5.0); BG FRACTION INSPIRED OXYGEN 21; BG HCO3 ACT 29.6 mmol/L (22.0-26.0); BG METHEMOGLOBIN 0.3 % (0.0-1.5); BG OXYGEN SATURATION 96.8 % (92.0-98.5); BG OXYHEMOGLOBIN 95.4 % (94.0-97.0); BG PCO2 44.6 mmHg (35.0-45.0); BG SAMPLE SITE LEFT RADIAL; BG TOTAL HEMOGLOBIN 15.5 g/dL (12.0-18.0); BG VENT MODE ROOM AIR
[2018-09-18] MEDS ORDERED: CEFTRIAXONE 1 G PREMIX 50 ML IV SCH (13:00)
[2018-09-18] MEDS ORDERED: AZITHROMYCIN 500 MG in DEXT 5% WATER 250 ML IV SCH (14:00)
[2018-09-18] MEDS ORDERED: LORAZEPAM 2MG/ML CPJ IV SCH (14:30)
[2018-09-18] MEDS ORDERED: METHYLPREDNISOLONE SOD SUCC 125 MG/2 ML VIAL IV SCH (14:30)
[2018-09-18] MEDS: ENOXAPARIN 40MG/0.4ML SYR SUBCUT SCH (15:49)
[2018-09-19] VITALS: BP 106/51
[2018-09-19] MEDS: HYDROCODONE/ACETAMINOPHEN 5/325MG TABLET PO PRN ×2 (02:34→08:18)
[2018-09-19] MEDS: IPRATROPIUM/ALBUTEROL 0.5-3(2.5)MG/3ML NEB HHN SCH ×2 (03:07→08:04)
[2018-09-19] MEDS: BLOOD SUGAR DIAGNOSTIC STRIP TEST SCH (06:48)
[2018-09-19] MEDS: NICOTINE 21MG PATCH TD SCH (07:58)
[2018-09-19] MEDS: ENOXAPARIN 40MG/0.4ML SYR SUBCUT SCH (07:59)
[2018-09-19 08:00] VITALS: BP 131/80
[2018-09-19] MEDS: INSULIN LISPRO 100 UNITS/ML SUBCUT SCH ×2 (08:02→08:04)
[2018-09-19] MEDS: AMLODIPINE 10MG TABLET PO SCH (08:04)
[2018-09-19] MEDS: LOSARTAN POTASSIUM 25 MG TABLET PO SCH (08:04)
[2018-09-19] MEDS: THIAMINE HCL 100MG TABLET PO SCH (08:04)
[2018-09-19] MEDS: PREDNISONE 20MG TABLET PO SCH (08:04)
[2018-09-19] MEDS: FERROUS SULFATE 325MG TABLET PO SCH (08:04)
[2018-09-19 08:55] VITALS: BP 157/71
[2018-09-19] MEDS ORDERED: AZITHROMYCIN 500 MG TABLET PO SCH (09:00)
[2018-09-20] MEDS ORDERED: METF-414 MT (20:07)
[2018-09-20] MEDS ORDERED: TIOT18CA3 INH (20:07)
[2018-09-20] MEDS ORDERED: DOXY150T PO (20:07)
[2018-09-20] MEDS ORDERED: THEO400T PO (20:07)
[2018-09-20] MEDS ORDERED: AMLO10TA80 MT (20:07)
[2018-09-20] MEDS ORDERED: GUAI200T5 MT (20:07)
[2018-09-20] MEDS ORDERED: PRED10TA23 MT (20:07)
[2018-09-20] MEDS ORDERED: MONT10TA24 MT (20:07)
== END 2018-09-19 10:01 | disposition home or self-care (01) | DRG 291 ==
LOC: EDBD → ER 08:00 → ENRESERV 08:48 → 5EST 10:30
PROVIDERS: ADMIT Internal Medicine Nephrology; ATTEND Internal Medicine Nephrology
PROC: 5A09357 Assistance with Respiratory Ventilation, Less than 24 Consecutive Hours, Continuous Positive Airway Pressure (ICD-10-PCS; principal; 2018-09-16)
PROC: 5A09357 Assistance with Respiratory Ventilation, Less than 24 Consecutive Hours, Continuous Positive Airway Pressure (ICD-10-PCS; 2018-09-18)
DX: I11.0 Hypertensive heart disease with heart failure (principal); J96.00 Acute respiratory failure, unspecified whether with hypoxia or hypercapnia; E44.0 Moderate protein-calorie malnutrition; I50.43 Acute on chronic combined systolic (congestive) and diastolic (congestive) heart failure; I42.9 Cardiomyopathy, unspecified; E11.9 Type 2 diabetes mellitus without complications; F17.210 Nicotine dependence, cigarettes, uncomplicated; B19.20 Unspecified viral hepatitis C without hepatic coma; J43.9 Emphysema, unspecified; I34.0 Nonrheumatic mitral (valve) insufficiency; G43.909 Migraine, unspecified, not intractable, without status migrainosus; F41.9 Anxiety disorder, unspecified; K76.9 Liver disease, unspecified; T38.0X5A Adverse effect of glucocorticoids and synthetic analogues, initial encounter; Z79.4 Long term (current) use of insulin; Z82.3 Family history of stroke; Y92.89 Other specified places as the place of occurrence of the external cause; Z68.21 Body mass index [BMI] 21.0-21.9, adult
CPT/HCPCS: 36415; 36600; 80048; 80305; 82375; 82550; 82553; 82805; 82962; 83880; 84484; 93306; 94640; 94660; 97162; 97530; 99285; J0456; J0696; J1650; J1815; J2060; J2920; J2930; J3030; J7060; J7512; J7620

== ENCOUNTER 2018-09-30 13:42 | Emergency (ER) | payer OTHER ==
[~2018-09-30] VITALS: Ht 177.8 cm; Wt 86.0 kg
[~2018-09-30 13:42] MED LIST changes: +AMLO10TA80 MT; -ASPI-1158 MT; -CHOL20004 MT; +DOXY150T PO; -GLIP5TAB12 MT; +GUAI200T5 MT; +METF-414 MT; +MONT10TA24 MT; +PRED10TA23 MT; +THEO400T PO; +TIOT18CA3 INH
[2018-09-30] MEDS ORDERED: IPRATROPIUM BROMIDE (0.02%) 0.5MG/2.5ML NEB HHN STA (13:58)
[2018-09-30] MEDS ORDERED: METHYLPREDNISOLONE SOD SUCC 125 MG/2 ML VIAL IV STA (13:58)
[2018-09-30] MEDS: MAGNESIUM 2 G PREMIX 50 ML IV ONE ×2 (14:00→15:14)
[2018-09-30] MEDS: ALBUTEROL (0.083%) 2.5MG/3ML NEB HHN SCH (14:15)
[2018-09-30 14:16] LABS: HEMOGLOBIN. 13.6 g/dL (14.0-18.0); MEAN CORPUSCULAR HEMOGLOBIN 30.9 pg (28.0-32.0); MEAN CORPUSCULAR VOLUME 90.8 fL (80.0-94.0); MEAN PLATELET VOLUME 9.1 fl (7.4-10.4); PLATELET 118 x1000/uL (130-400); RED CELL DISTRIBUTION WIDTH 13.6 % (11.6-14.6)
[2018-09-30 14:19] LABS: CHLORIDE 102 mEq/L (98-107); PROTHROMBIN TIME 10.4 sec (9.6-11.0)
[2018-09-30] MEDS ORDERED: LORAZEPAM 2MG/ML CPJ IV NR (16:05)
[2018-09-30 17:02] LABS: PLATELET ESTIMATE DECREASED
[2018-09-30 17:21] VITALS: BP 154/88
== END 2018-09-30 18:00 | disposition left against medical advice (07) ==
LOC: ER 13:42 → EDBEDREQTM 16:49 → EDBEDREQ 16:49 → CANRESERV 17:05 → ENRESERV 17:05 → ER 18:00 → CANBEDREQ 19:05
DX: J44.1 Chronic obstructive pulmonary disease with (acute) exacerbation (principal); F41.1 Generalized anxiety disorder; E11.65 Type 2 diabetes mellitus with hyperglycemia; I50.9 Heart failure, unspecified; F15.10 Other stimulant abuse, uncomplicated; F17.210 Nicotine dependence, cigarettes, uncomplicated; Z79.84 Long term (current) use of oral hypoglycemic drugs; Z86.19 Personal history of other infectious and parasitic diseases; Z98.890 Other specified postprocedural states
CPT/HCPCS: 36415; 71045; 80053; 83880; 84484; 85025; 85610; 93005; 94640; 96374; 96375; 99284; J2060; J2930; J3475; J7611